=== PATIENT | female | born 2000 | race Caucasian/White ===

== ENCOUNTER 2021-05-17 17:39 | Inpatient (IN) | payer BC, SELFPAY ==
[2021-05-17 17:52] VITALS: BP 128/70; PULSE 82; O2SAT 98
[2021-05-17 18:16] VITALS: BP 118/69; PULSE 89; RESP 18; TEMP 36.9; O2SAT 98; BMI 24.5
--- NOTE | 2021-05-17 18:17 | ED.GENADULT ---
HPI - General Adult General Chief complaint: Psychiatric Symptoms Stated complaint: SI Time Seen by Provider: 05/17/21 18:16 Source: patient and EMS Mode of arrival: EMS Limitations: no limitations History of Present Illness HPI narrative: Patient is a 21 year old female presenting to the emergency department today with suicidal ideation, under a section 12. Patient's section 12 paperwork comes from the clinician at [facility] that states the patient has plan to overdose on her medication. Patient denies any dizziness, lightheadedness, abdominal pain, nausea, vomiting, fever, chills, blurry vision, double vision, loss of vision, chest pain, difficulty breathing, shortness of breath, back pain, night sweats, pain with urination, increased urinary frequency, increased urinary urgency, blood in her urine or stool, syncope or a near syncopal episode, recent trauma or falls, bowel incontinence, bladder incontinence, bowel retention, bladder retention, or any other complaints at this time. Patient states that her depression has been getting worse over the last 2 weeks. Patient denies any homicidal ideation. Onset (ago): day(s) Severity: mild Relieving factors: none Exacerbating factors: other (stress) Associated symptoms: denies other symptoms Treatments prior to arrival: none Related Data Home Medications Medication Instructions Recorded Confirmed bupropion HCl 300 mg 24 hr tablet, 1 tab PO DAILY 05/17/21 05/17/21 extended release hydroxyzine HCl 50 mg tablet 75 mg PO BEDTIME PRN 05/17/21 05/17/21 melatonin 3 mg tablet 1 - 2 tab PO NEEDED PRN 05/17/21 05/17/21 Allergies Allergy/AdvReac Type Severity Reaction Status Date / Time No Known Allergies Allergy Verified 05/17/21 18:17 Review of Systems Constitutional: Constitutional: Reports no additional constitutional complaints, Denies chills, Denies fever(s) and Denies night sweats Eyes: Eyes: Reports no additional eye complaints, Denies blurry vision, Denies change in vision, Denies diplopia, Denies eye discharge, Denies loss of vision and Denies eye pain ENT: Denies dizziness Cardiovascular: Cardiovascular: Reports no additional cardiovascular complaints, Denies chest pain, Denies lightheadedness, Denies Loss of Consciousness and Denies dyspnea Respiratory: Respiratory: Reports no additional respiratory complaints and Denies dyspnea Gastrointestinal: Gastrointestinal: Reports no additional gastrointestinal complaints, Denies abdominal pain, Denies melena, Denies hematochezia, Denies change in bowel habits and Denies change in stool character Genitourinary: Genitourinary: Denies hematuria, Denies urinary frequency, Denies dysuria, Denies urinary incontinence, Denies urinary hesitancy and Denies urinary urgency Musculoskeletal: Musculoskeletal: Reports no additional musculoskeletal complaints, Denies numbness and Denies tingling Neurologic: Denies dizziness, Denies loss of vision, Denies numbness and Denies tingling Psychiatric: Psychiatric: Reports no additional psychiatric complaints, Denies homicidal ideation and Reports suicidal ideation Endocrine: Endocrine: Reports no additional endocrine complaints Hematologic/Lymphatic: Hematologic/Lymphatic: Reports no additional hematologic/lymphatic complaints Allergic/Immunologic: Allergic/Immunologic: Reports no additional allergic/immunologic complaints [facility] Past Medical History Attestation statement: The following information was validated with the patient. Source: old records reviewed Social History Social History Advance Directives: No Advance Directives Information Provided: No Patient : No Physical Exam ED Vital Signs: Vital Signs - 24 hr 05/17/21 18:16 Temperature 98.5 F Pulse Rate 89 Respiratory Rate 18 Blood Pressure 118/69 Pulse Oximetry 98 BMI result Body Mass Index 24.5 Const General: cooperative, no acute distress, alert and awake Nutritional Appearance: well nourished Orientation/consciousness: patient oriented x3 Limitations: no limitations [facility] Head: Yes normal to inspection and Yes atraumatic Ears: hearing grossly normal bilaterally and external ears normal General nose exam: Normal external nose present, no nasal discharge noted and no epistaxis Face and sinus: Yes normal facial exam, No abrasion and No laceration Mouth: Normal oral and palatal mucosa present, no drooling and no muffled voice Eyes General: appearance normal, both eyes and all related structures Periorbital: periorbital findings normal Eyelids: Yes eyelids normal Conjunctivae: conjunctivae normal Pupils: Equal, round and reactive pupils present EOM: EOMs intact bilaterally Neck Neck: Yes normal visual inspection, Yes full ROM and Yes no lymphadenopathy Chest Chest palpation & inspection: normal inspection of the chest Resp Effort & Inspection: normal respiratory effort and able to speak in complete sentences Auscultation: clear to auscultation bilaterally Cardio Rate: regular rate Rhythm: regular rhythm GI Inspection: Yes normal to inspection Neuro General: patient oriented x3 and moves all extremities Cranial nerves: Yes Equal, round and reactive pupils present Cognition (Neuro): normal cognition Motor exam (neuro): 5/5 motor strength present throughout Sensory Exam: Normal double simultaneous stimulation for sensation Coordination: [id number] test normal Extrem General: Yes normal to inspection, Yes full ROM and Yes capillary refill normal Psych Appearance: grossly normal Mental Status: mental status grossly normal Affect: normal affect Attitude: cooperative Thought process: Normal thought process present Thought content: Suicidality present and Depressive thoughts present Insight: Good insight present (Psych) Course Reevaluation(s) Reevaluation #1: Spoke to CARE team who states that they reissued the section 12 because of some issues with the first form being filled out incorrectly. They stated that there would be an opening in our psychiatric unit here and she will be going there. Time: 20:40 Medical Decision Making MDM Narrative Medical decision making narrative: Patient is a 21 year old female presenting to the emergency department today with suicidal ideation and depression. Patient's physical exam showed a depressed, suicidal, but cooperative patient. Patient's blood work was unremarkable. Patient's urine showed no acute process. I explained my physical exam findings as well as all test results to the patient. I answered all questions asked by the patient. Patient was evaluated by the CARE team who reissued a section 12 due to some issues with the originally issued form. They stated that there is an opening in our psychiatric unit here and she will be going there at some point in the near future. Patient verbalized agreement and understanding with this treatment plan and admission. Differential Diagnosis Differential Diagnosis: suicidal ideation, depression Medical Records Medical records reviewed: Yes I reviewed the patient's medical records. Lab Data Lab results reviewed: Yes I reviewed the patient's lab results. Result diagrams: 05/17/21 18:55 05/17/21 18:55 Labs: Lab Results 05/17/21 05/17/21 05/17/21 Range/Units 18:26 18:26 18:29 WBC (4.8-10.8) X10*3/uL RBC (4.20-5.50) X10*6/uL Hgb (12.0-16.0) g/dl Hct (37.0-47.0) % MCV (80.0-98.0) fL MCH (27.0-33.0) pg MCHC (31.0-35.0) g/dl RDW (11.0-16.0) % Plt Count (160-400) X10*3/uL MPV (9.4-12.3) fL Immature Gran % (Auto) (0.0-0.4) % Neut % (Auto) (45-73) % Lymph % (Auto) (20-40) % Swift % (Auto) (2-11) % Eos % (Auto) (0-4) % Baso % (Auto) (0-2) % Lymph # (Auto) (1.2-4.9) X10*3/uL Swift # (Auto) (0.1-1.2) X10*3/uL Eos # (Auto) (0.0-0.4) X10*3/uL Baso # (Auto) (0.0-0.2) X10*3/uL Abs Immat Gran (auto) (0.00-0.03) X10*3/uL Absolute Neuts (auto) (2.0-8.3) x10*3/uL Absolute Nucleated RBC (0.0-0.012) X10*3/uL Nucleated RBC % (auto) (0.0-0.2) /100WBC Sodium (135-145) mmol/L Potassium (3.3-5.1) mmol/L Chloride (96-108) mmol/L Carbon Dioxide (22-29) mmol/L Anion Gap (12-20) BUN (9-16) mg/dL Creatinine (0.5-1.4) mg/dL Estim Creat Clear Calc Estimated GFR Random Glucose (60-115) mg/dL Calcium (8.4-10.2) mg/dL Total Bilirubin (0.0-1.0) mg/dL AST (5-31) U/L ALT (0-31) U/L Alkaline Phosphatase (39-117) U/L Total Protein (6.5-8.0) g/dL Albumin (3.5-5.0) g/dL Urine Color Urine Appearance Urine pH (5.0-8.0) Ur Specific [place] (1.005-1.025) Urine Protein (NEG-TRACE) MG/DL Urine Glucose (UA) (NEG) MG/DL Urine Ketones (NEG) MG/DL Urine Blood (NEG) Urine Nitrite (NEG) Ur Leukocyte Esterase (NEG) Urine RBC (0) /HPF Urine WBC (0-4) /HPF Ur Squamous Epith Cells /LPF Urine Bacteria /LPF Urine Test NEGATIVE (NEGATIVE) Urine Opiates Screen Not Detected (Not Detect) Urine Fentanyl Screen Not Detected (Not Detect) Ur Barbiturates Screen Not Detected (Not Detect) Ur Phencyclidine Scrn Not Detected (Not Detect) Ur Amphetamines Screen Not Detected (Not Detect) U Benzodiazepines Scrn Not Detected (Not Detect) Urine Cocaine Screen Not Detected (Not Detect) U Marijuana (THC) Screen Not Detected (Not Detect) Ethyl Alcohol mg/dL COVID-19 ([place]) Negative (Negative) COVID-19 Clin Com See Note 05/17/21 05/17/21 05/17/21 Range/Units 18:29 18:55 18:55 WBC 7.2 (4.8-10.8) X10*3/uL RBC 4.20 (4.20-5.50) X10*6/uL Hgb 12.6 (12.0-16.0) g/dl Hct 37.0 (37.0-47.0) % MCV 88.1 (80.0-98.0) fL MCH 30.0 (27.0-33.0) pg MCHC 34.1 (31.0-35.0) g/dl RDW 11.9 (11.0-16.0) % Plt Count 246 (160-400) X10*3/uL MPV 10.1 (9.4-12.3) fL Immature Gran % (Auto) 0.3 (0.0-0.4) % Neut % (Auto) 61.1 (45-73) % Lymph % (Auto) 29.2 (20-40) % Swift % (Auto) 5.9 (2-11) % Eos % (Auto) 2.9 (0-4) % Baso % (Auto) 0.6 (0-2) % Lymph # (Auto) 2.1 (1.2-4.9) X10*3/uL Swift # (Auto) 0.4 (0.1-1.2) X10*3/uL Eos # (Auto) 0.2 (0.0-0.4) X10*3/uL Baso # (Auto) 0.0 (0.0-0.2) X10*3/uL Abs Immat Gran (auto) 0.02 (0.00-0.03) X10*3/uL Absolute Neuts (auto) 4.4 (2.0-8.3) x10*3/uL Absolute Nucleated RBC 0.000 (0.0-0.012) X10*3/uL Nucleated RBC % (auto) 0.0 (0.0-0.2) /100WBC Sodium 141 (135-145) mmol/L Potassium 3.9 (3.3-5.1) mmol/L Chloride 109 H (96-108) mmol/L Carbon Dioxide 22 (22-29) mmol/L Anion Gap 14 (12-20) BUN 15 (9-16) mg/dL Creatinine 0.70 (0.5-1.4) mg/dL Estim Creat Clear Calc 104.9 Estimated GFR > 60 Random Glucose 86 (60-115) mg/dL Calcium 9.6 (8.4-10.2) mg/dL Total Bilirubin 0.4 (0.0-1.0) mg/dL AST 17 (5-31) U/L ALT 10 (0-31) U/L Alkaline Phosphatase 70 (39-117) U/L Total Protein 7.5 (6.5-8.0) g/dL Albumin 4.5 (3.5-5.0) g/dL Urine Color YELLOW Urine Appearance CLEAR Urine pH 6.0 (5.0-8.0) Ur Specific [place] >= 1.030 H (1.005-1.025) Urine Protein NEG (NEG-TRACE) MG/DL Urine Glucose (UA) NEG (NEG) MG/DL Urine Ketones NEG (NEG) MG/DL Urine Blood 3+ H (NEG) Urine Nitrite NEG (NEG) Ur Leukocyte Esterase NEG (NEG) Urine RBC 10-14 H (0) /HPF Urine WBC 0 (0-4) /HPF Ur Squamous Epith Cells 1+ /LPF Urine Bacteria NONE /LPF Urine Test (NEGATIVE) Urine Opiates Screen (Not Detect) Urine Fentanyl Screen (Not Detect) Ur Barbiturates Screen (Not Detect) Ur Phencyclidine Scrn (Not Detect) Ur Amphetamines Screen (Not Detect) U Benzodiazepines Scrn (Not Detect) Urine Cocaine Screen (Not Detect) U Marijuana (THC) Screen (Not Detect) Ethyl Alcohol mg/dL COVID-19 ([place]) (Negative) COVID-19 Clin Com 05/17/21 Range/Units 18:55 WBC (4.8-10.8) X10*3/uL RBC (4.20-5.50) X10*6/uL Hgb (12.0-16.0) g/dl Hct (37.0-47.0) % MCV (80.0-98.0) fL MCH (27.0-33.0) pg MCHC (31.0-35.0) g/dl RDW (11.0-16.0) % Plt Count (160-400) X10*3/uL MPV (9.4-12.3) fL Immature Gran % (Auto) (0.0-0.4) % Neut % (Auto) (45-73) % Lymph % (Auto) (20-40) % Swift % (Auto) (2-11) % Eos % (Auto) (0-4) % Baso % (Auto) (0-2) % Lymph # (Auto) (1.2-4.9) X10*3/uL Swift # (Auto) (0.1-1.2) X10*3/uL Eos # (Auto) (0.0-0.4) X10*3/uL Baso # (Auto) (0.0-0.2) X10*3/uL Abs Immat Gran (auto) (0.00-0.03) X10*3/uL Absolute Neuts (auto) (2.0-8.3) x10*3/uL Absolute Nucleated RBC (0.0-0.012) X10*3/uL Nucleated RBC % (auto) (0.0-0.2) /100WBC Sodium (135-145) mmol/L Potassium (3.3-5.1) mmol/L Chloride (96-108) mmol/L Carbon Dioxide (22-29) mmol/L Anion Gap (12-20) BUN (9-16) mg/dL Creatinine (0.5-1.4) mg/dL Estim Creat Clear Calc Estimated GFR Random Glucose (60-115) mg/dL Calcium (8.4-10.2) mg/dL Total Bilirubin (0.0-1.0) mg/dL AST (5-31) U/L ALT (0-31) U/L Alkaline Phosphatase (39-117) U/L Total Protein (6.5-8.0) g/dL Albumin (3.5-5.0) g/dL Urine Color Urine Appearance Urine pH (5.0-8.0) Ur Specific [place] (1.005-1.025) Urine Protein (NEG-TRACE) MG/DL Urine Glucose (UA) (NEG) MG/DL Urine Ketones (NEG) MG/DL Urine Blood (NEG) Urine Nitrite (NEG) Ur Leukocyte Esterase (NEG) Urine RBC (0) /HPF Urine WBC (0-4) /HPF Ur Squamous Epith Cells /LPF Urine Bacteria /LPF Urine Test (NEGATIVE) Urine Opiates Screen (Not Detect) Urine Fentanyl Screen (Not Detect) Ur Barbiturates Screen (Not Detect) Ur Phencyclidine Scrn (Not Detect) Ur Amphetamines Screen (Not Detect) U Benzodiazepines Scrn (Not Detect) Urine Cocaine Screen (Not Detect) U Marijuana (THC) Screen (Not Detect) Ethyl Alcohol < 10 mg/dL COVID-19 ([place]) (Negative) COVID-19 Clin Com Discharge Plan Discharge Clinical Impression: Depression, Suicidal ideation Patient Disposition: Admitted As Inpatient Prescriptions: No Action bupropion HCl 300 mg tablet extended release 24 hr 1 tab PO DAILY 0RF hydroxyzine HCl 50 mg tablet 75 mg PO BEDTIME PRN (Reason: Insomnia) 0RF melatonin 3 mg tablet 1 - 2 tab PO NEEDED PRN (Reason: Insomnia) 0RF Print Language: Yoruba
[2021-05-17 18:43] LABS: Appearance Urine CLEAR; Color Urine YELLOW; Glucose Urine UA NEG (NEG); Leukocyte Esterase Urine NEG (NEG); Nitrite Urine NEG (NEG); Specific Gravity - Urine >= 1.030 (1.005-1.025); Urine Blood 3+ (NEG); Urine Ketones NEG (NEG); Urine Protein NEG (NEG-TRACE)
[2021-05-17 18:44] LABS: UPreg QC Valid YES; Urine Pregnancy NEGATIVE (NEGATIVE)
[2021-05-17 18:51] LABS: Squamous Epithelial Cell Urine 1+ /LPF; WBC Urine 0 /HPF (0-4)
[2021-05-17 18:57] LABS: Amphetamine Screen Urine Not Detected (Not Detect); Barbiturates, Urine Not Detected (Not Detect); Benzodiazepines Screen Urine Not Detected (Not Detect); COVID-19 Test Negative (Negative); Cannabinoid Screen Urine Not Detected (Not Detect); Cocaine Screen Urine Not Detected (Not Detect); Fentanyl, urine Not Detected (Not Detect); IDNOW Serial# 16C4AD1C; Opiate Screen Urine Not Detected (Not Detect); Phencyclidine Screen Urine Not Detected (Not Detect)
[2021-05-17 19:02] LABS: MANUAL DIFF FLAG NO
[2021-05-17 19:04] LABS: Basophils Percent Auto 0.6 % (0-2); Eosinophils Absolute Auto 0.2 X10*3/uL (0.0-0.4); Eosinophils Percent Auto 2.9 % (0-4); Hemoglobin 12.6 g/dl (12.0-16.0); Imm Gran Abs Auto 0.02 X10*3/uL (0.00-0.03); Imm Gran Pct Auto 0.3 % (0.0-0.4); Lymphocytes Absolute Auto 2.1 X10*3/uL (1.2-4.9); Lymphocytes Percent Auto 29.2 % (20-40); Mean Corpuscular HGB Conc 34.1 g/dl (31.0-35.0); Mean Corpuscular Volume 88.1 fL (80.0-98.0); Mean Platelet Volume 10.1 fL (9.4-12.3); Monocytes Absolute Auto 0.4 X10*3/uL (0.1-1.2); Monocytes Percent Auto 5.9 % (2-11); Neutrophils Absolute Auto 4.4 x10*3/uL (2.0-8.3); Neutrophils Percent Auto 61.1 % (45-73); Platelet Count 246 X10*3/uL (160-400); Red Cell Distribution Width 11.9 % (11.0-16.0); White Blood Count 7.2 X10*3/uL (4.8-10.8)
[2021-05-17 19:19] LABS: Ethanol < 10 mg/dL
[2021-05-17 19:21] LABS: Alanine Aminotransferase 10 U/L (0-31); Albumin Level 4.5 g/dL (3.5-5.0); Alkaline Phosphatase 70 U/L (39-117); Anion Gap 14 (12-20); Aspartate Amino Transferase 17 U/L (5-31); Bilirubin Total 0.4 mg/dL (0.0-1.0); Blood Urea Nitrogen 15 mg/dL (9-16); Calcium 9.6 mg/dL (8.4-10.2); Carbon Dioxide 22 mmol/L (22-29); Chloride 109 mmol/L (96-108); Creatinine Clr Calc Pharmacy 104.9; Estimated Glomerular Filt Rate > 60; Glucose Random 86 mg/dL (60-115); Potassium 3.9 mmol/L (3.3-5.1); Sodium 141 mmol/L (135-145); Total Protein 7.5 g/dL (6.5-8.0)
[2021-05-17] MEDS: diphenhydrAMINE HCL 25 MG TABLET 50 MG PO (22:54)
[2021-05-17] MEDS: LORazepam 1 MG TABLET 2 MG PO (22:54)
--- NOTE | 2021-05-18 | ECG_ITS ---
Test Reason : MED CLEARANCE Blood Pressure : / mmHG Vent. Rate : 070 BPM Atrial Rate : 070 BPM P-R Int : 136 ms QRS Dur : 086 ms QT Int : 384 ms P-R-T Axes : 034 031 042 degrees QTc Int : 414 ms Sinus rhythm with marked sinus arrhythmia Otherwise normal ECG No previous ECGs available Referred By: Lluvia Flores Electronically Signed By:MICAH RUIZ MD
--- NOTE | 2021-05-18 00:52 | MHC.CARE ---
Pt was evaluated by the CARE team, she is an inpatient bedsearch at this time.
--- NOTE | 2021-05-18 06:33 | PC.NURSE ---
Patient slept though the night, no distress observed/reported, behavior calm, medication compliant, administered Ativan 2 mg po and Benadryl 50 mg po for anxiety and for sleep at 2254 with positive effect, disposition per care team is voluntary Inpatient Bed search, will continue to monitor.
--- NOTE | 2021-05-18 07:09 | PC.NURSE ---
patient appears to remain asleep at present respirations are even and unlaborfed patient appears in no distress
[2021-05-18 16:37] VITALS: BMI 27.1
--- NOTE | 2021-05-18 17:23 | PC.ADMIT ---
Patient presented [place] [facility] [place] [facility] [place] a conditional voluntary on 05/18/2021 at 14:53. 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 Patient is alert and oriented x 4. Pleasant and cooperative with the admission process and questions. Patient presented after having increased depression and suicidal thoughts of ?bleeding out and taking pills? the last two weeks. Patient reported to be isolated in her dorm room, and has had a lack of motivation .Reported that she has not seen her psychiatrist or therapist since the end of February, and as a result has not been on medications since then as well. Sleep has been poor and restless . Patient reported not feeling refreshed after sleeping. Patient is unsure about weight loss, but reports decreased appetite. Stated Everything tastes gross . Patient Denies SI/HI/AH/VH. Patient reports drinking alcohol 3 times a week of 10-12 drink sof tequila or vodka. Patient reported last drink was Saturday (05/12/2021). No signs/symptoms of withdrawal, Nurse practitioner (Masha Cowan) notified of alcohol history. Patient reported goals of discharge were to ?not feel like this anymore?. Patient rated anxiety and depression as 8.5/10. Patient denies physical complaints at this time. 15 minute safety checks initiated.
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
[2021-05-18] MEDS: Melatonin 3 MG TABLET 6 MG PO (21:44)
[2021-05-18] MEDS: hydrOXYzine HCL 25 MG TABLET 75 MG PO (21:44)
[2021-05-19 10:06] VITALS: BP 115/58; PULSE 65; RESP 15; TEMP 36.7; O2SAT 99
[2021-05-19] MEDS: buPROPion HCl XL 300 MG TAB.ER.24H PO (10:07)
--- NOTE | 2021-05-19 15:53 | P.PNPSI_ITS ---
Subjective Subjective Date of Service: 05/19/21 Reason For Visit: SI Interim History: pt reports her mood is just tired. she reports most recent SI was earlier this week. EKG result is reviewed with her and she denies any recent cardiac Sx. she reports a h/o intermittent CP accompanied by a suffocating feeling and a large, sharp pressure on her chest. it lasts 30 minutes to 1 hour. it has not occurred recently. she is content to restart her previous regimen, including wellbutrin 300 mg daily. no other complaints or requests. per staff, isolative, pleasant, had hydroxyzine for insomnia last NOC with good effect. Mental Status Exam Mental Status Exam Narrative: A&O. Well groomed, in hospital attire, normal body habitus. fair eye contact, attentive. No Tics or Tremors. No abnormal involuntary movements. Calm, somewhat guarded but able to engage in conversation. Non-pressured speech, non- spontaneous with regular rate and rhythm, quiet vocal volume and normal prosody. No prolonged speech latency or dysarthria. Mood is ?just tired,? affect is congruent, dysphoric. denies SI/SIBI since earlier this week. denies HI/AVH or delusional thought content. Thoughts are coherent, organized. No known cognitive or memory impairment. Insight/ Judgment fair and adequate. Diagnostics Vital Signs (24Hr): Vital Signs - 24 hr 05/19/21 10:06 Temperature 98.0 F Pulse Rate 65 Respiratory Rate 15 Blood Pressure 115/58 L Pulse Oximetry 99 BMI result Body Mass Index 27.1 Labs Results: 05/17/21 18:55 05/17/21 18:55 Labs: Laboratory Results - last 48 hr 05/17/21 05/17/21 05/17/21 18:26 18:26 18:29 WBC RBC Hgb Hct MCV MCH MCHC RDW Plt Count MPV Immature Gran % (Auto) Neut % (Auto) Lymph % (Auto) [place] % (Auto) Eos % (Auto) Baso % (Auto) Lymph # (Auto) [place] # (Auto) Eos # (Auto) Baso # (Auto) Abs Immat Gran (auto) Absolute Neuts (auto) Absolute Nucleated RBC Nucleated RBC % (auto) Sodium Potassium Chloride Carbon Dioxide Anion Gap BUN Creatinine Estim Creat Clear Calc Estimated GFR Random Glucose Calcium Total Bilirubin AST ALT Alkaline Phosphatase Total Protein Albumin Urine Color Urine Appearance Urine pH Ur Specific [place] Urine Protein Urine Glucose (UA) Urine Ketones Urine Blood Urine Nitrite Ur Leukocyte Esterase Urine RBC Urine WBC Ur Squamous Epith Cells Urine Bacteria Urine Test NEGATIVE Urine Opiates Screen Not Detected Urine Fentanyl Screen Not Detected Ur Barbiturates Screen Not Detected Ur Phencyclidine Scrn Not Detected Ur Amphetamines Screen Not Detected U Benzodiazepines Scrn Not Detected Urine Cocaine Screen Not Detected U Marijuana (THC) Screen Not Detected Ethyl Alcohol COVID-19 ([place]) Negative COVID-19 Clin Com See Note 05/17/21 05/17/21 05/17/21 18:29 18:55 18:55 WBC 7.2 RBC 4.20 Hgb 12.6 Hct 37.0 MCV 88.1 MCH 30.0 MCHC 34.1 RDW 11.9 Plt Count 246 MPV 10.1 Immature Gran % (Auto) 0.3 Neut % (Auto) 61.1 Lymph % (Auto) 29.2 [place] % (Auto) 5.9 Eos % (Auto) 2.9 Baso % (Auto) 0.6 Lymph # (Auto) 2.1 [place] # (Auto) 0.4 Eos # (Auto) 0.2 Baso # (Auto) 0.0 Abs Immat Gran (auto) 0.02 Absolute Neuts (auto) 4.4 Absolute Nucleated RBC 0.000 Nucleated RBC % (auto) 0.0 Sodium 141 Potassium 3.9 Chloride 109 H Carbon Dioxide 22 Anion Gap 14 BUN 15 Creatinine 0.70 Estim Creat Clear Calc 104.9 Estimated GFR > 60 Random Glucose 86 Calcium 9.6 Total Bilirubin 0.4 AST 17 ALT 10 Alkaline Phosphatase 70 Total Protein 7.5 Albumin 4.5 Urine Color YELLOW Urine Appearance CLEAR Urine pH 6.0 Ur Specific [place] >= 1.030 H Urine Protein NEG Urine Glucose (UA) NEG Urine Ketones NEG Urine Blood 3+ H Urine Nitrite NEG Ur Leukocyte Esterase NEG Urine RBC 10-14 H Urine WBC 0 Ur Squamous Epith Cells 1+ Urine Bacteria NONE Urine Test Urine Opiates Screen Urine Fentanyl Screen Ur Barbiturates Screen Ur Phencyclidine Scrn Ur Amphetamines Screen U Benzodiazepines Scrn Urine Cocaine Screen U Marijuana (THC) Screen Ethyl Alcohol COVID-19 ([place]) COVID-19 Clin Com 05/17/21 18:55 WBC RBC Hgb Hct MCV MCH MCHC RDW Plt Count MPV Immature Gran % (Auto) Neut % (Auto) Lymph % (Auto) [place] % (Auto) Eos % (Auto) Baso % (Auto) Lymph # (Auto) [place] # (Auto) Eos # (Auto) Baso # (Auto) Abs Immat Gran (auto) Absolute Neuts (auto) Absolute Nucleated RBC Nucleated RBC % (auto) Sodium Potassium Chloride Carbon Dioxide Anion Gap BUN Creatinine Estim Creat Clear Calc Estimated GFR Random Glucose Calcium Total Bilirubin AST ALT Alkaline Phosphatase Total Protein Albumin Urine Color Urine Appearance Urine pH Ur Specific [place] Urine Protein Urine Glucose (UA) Urine Ketones Urine Blood Urine Nitrite Ur Leukocyte Esterase Urine RBC Urine WBC Ur Squamous Epith Cells Urine Bacteria Urine Test Urine Opiates Screen Urine Fentanyl Screen Ur Barbiturates Screen Ur Phencyclidine Scrn Ur Amphetamines Screen U Benzodiazepines Scrn Urine Cocaine Screen U Marijuana (THC) Screen Ethyl Alcohol < 10 COVID-19 ([place]) COVID-19 Clin Com Medications Medications Current Medications Acetaminophen (Acetaminophen 325 Mg Tablet) 650 mg PO Q6H PRN PRN Reason: Headache/Pain Mild Scale (1-3) Al Hydroxide/Mg Hydroxide (Magnesium Hydrox/Alum Hydrox 30 Ml Oral.Susp) 30 ml PO Q6H PRN PRN Reason: Heartburn/Nausea Bupropion HCl (Bupropion Hcl Xl 300 Mg Tab.Er.24h) 300 mg PO DAILY ADOLPH Last Admin: 05/19/21 10:07 Dose: 300 mg Documented by: Hydroxyzine HCl (Hydroxyzine Hcl 25 Mg Tablet) 75 mg PO BEDTIME PRN PRN Reason: Insomnia Last Admin: 05/18/21 21:44 Dose: 75 mg Documented by: Magnesium Hydroxide (Milk Of Magnesia 30 Ml Oral.Susp) 30 ml PO DAILY PRN PRN Reason: Constipation Melatonin (Melatonin 3 Mg Tablet) 6 mg PO BEDTIME PRN PRN Reason: Insomnia Last Admin: 05/18/21 21:44 Dose: 6 mg Documented by: Trazodone HCl (Trazodone Hcl 50 Mg Tablet) 50 mg PO BEDTIME PRN PRN Reason: Insomnia Allergies Allergies Allergy/AdvReac Type Severity Reaction Status Date / Time No Known Allergies Allergy Verified 05/17/21 18:17 Assessment & Plan Assessment & Plan (1) Post traumatic stress disorder (PTSD): Status: Acute Code(s): F43.10 - Post-traumatic stress disorder, unspecified (2) MDD (major depressive disorder), recurrent episode, moderate: Status: Acute Code(s): F33.1 - Major depressive disorder, recurrent, moderate (3) Social anxiety disorder: Status: Acute Code(s): F40.10 - Social phobia, unspecified Plan Maria Eugenia is a 21 y.o. female who carries a dx of MDD, recurrent and PTSD. She presented to the ED 05/17/21 on a section 12a from the [facility] due to worsening depression x 2 weeks, SI with thoughts of bleeding out and taking pills.? Pt has not been attending to self care, has been isolating in her dorm room. Has been estranged from bio mom for one year, limited supports, has financial stress. Pt appears to have binge drinking behavior but does not think she has a drinking problem. Plan: Pt reports positive benefit on wellbutrin XL 300 mg QAM last semester, would like to re-start this. May consider SSRI, as she has not trialed this medication and has sx of PTSD, social anxiety, and depression. Q15 min safety checks, CV Monitor response to medications. Monitor for safety in the milieu. Discharge on stabilization. Patient seen. Chart reviewed. Discussed with team. Obtain collateral contact info?as needed 05/19: wellbutrin XL 300 mg restarted today. pt declines to take 150 mg x 3 days first. melatonin and trazodone also Rxed. arrhythmia on EKG noted and Dr. Fontaine contacted for opinion. I spent ___35___ minutes with the patient and/or on the patient floor today, greater than?50% of which was spent counseling/coordinating care. Reason for contiued inpatient stay Substantial Risk for: harm to self and inability to function
[2021-05-19 20:14] VITALS: BP 111/62; PULSE 69; RESP 16; TEMP 36.7; O2SAT 98
[2021-05-20] MEDS: hydrOXYzine HCL 25 MG TABLET 75 MG PO ×2 (00:24→22:50)
[2021-05-20] MEDS: Melatonin 3 MG TABLET 6 MG PO ×2 (00:24→22:50)
[2021-05-20 09:22] VITALS: BP 109/63; PULSE 70; RESP 15; TEMP 36.7; O2SAT 99
[2021-05-20] MEDS: buPROPion HCl XL 300 MG TAB.ER.24H PO (09:23)
[2021-05-20] MEDS: Milk of Magnesia 30 ML ORAL.SUSP PO (09:50)
--- NOTE | 2021-05-20 09:59 | HO.PSYCHPN ---
Subjective Subjective Date of Service: 05/20/21 Reason For Visit: SI Subjective Notes: Conditional Voluntary Interim History: pt reports her mood is Ok. she reports most recent SI was earlier this week, none today; reports feeling better; again, EKG result is reviewed with her and she denies any recent cardiac Sx. she denies chest apin today. she reports a h/o intermittent CP accompanied by a suffocating feeling and a large, sharp pressure on her chest. it lasts 30 minutes to 1 hour. it has not occurred recently. she is content to restart her previous regimen, including wellbutrin 300 mg daily. no other complaints or requests. per staff, isolative, pleasant, had hydroxyzine for insomnia last NOC with good effect. 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 dizziness, headache GI: No c/o Nausea, Vomiting, diarrhea, constipation or heartburn -Denies hx of seizures -Denies hx of TBI/ concussion -Denies hx of cardiac issues Constitutional: Reports no additional constitutional complaints, Denies chills, Denies fever(s) and Denies night sweats Eyes: Reports no additional eye complaints, Denies blurry vision, Denies change in vision, Denies diplopia, Denies eye discharge, Denies loss of vision and Denies eye pain Denies dizziness Cardiovascular: Reports no additional cardiovascular complaints, Denies chest pain, Denies lightheadedness, Denies Loss of Consciousness and Denies dyspnea Respiratory: Reports no additional respiratory complaints and Denies dyspnea Gastrointestinal: Reports no additional gastrointestinal complaints, Denies abdominal pain, Denies melena, Denies hematochezia, Denies change in bowel habits and Denies change in stool character Musculoskeletal: Reports no additional musculoskeletal complaints, Denies numbness and Denies tingling Denies dizziness, Denies loss of vision, Denies numbness and Denies tingling Psychiatric: Reports no additional psychiatric complaints, Denies homicidal ideation and Reports suicidal ideation Endocrine: Reports no additional endocrine complaints Hematologic/Lymphatic: Reports no additional hematologic/lymphatic complaints Allergic/Immunologic: Reports no additional allergic/immunologic complaints Mental Status Exam Mental Status Exam Patient Appearance: Well Grooomed and Appropriate Patient Orientation: Person, Place, Time and Situation Level of Consciousness: Awake Patient Behavior: Appropriate and Cooperative Mood Description: Calm and Sad Affect Description: Calm and Constricted Patient Cognition Impaired: No Ability to Follow Directions: Good Speech Pattern: Clear, Appropriate and Coherent Memory Description: Intact Hallucinations: None Delusions: Not Present Thought Process: Intact and Goal Oriented Thought Content: positive for Intact Judgement: Good Diagnostics Vital Signs (24Hr): Vital Signs - 24 hr 05/19/21 10:06 05/19/21 20:14 05/20/21 09:22 Temperature 98.0 F 98.1 F 98.1 F Pulse Rate 65 69 70 Respiratory Rate 15 16 15 Blood Pressure 115/58 L 111/62 109/63 Pulse Oximetry 99 98 99 BMI result Body Mass Index 27.1 Labs Results: 05/17/21 18:55 05/17/21 18:55 EKG EKG: reviewed Medications Medications Current Medications Acetaminophen (Acetaminophen 325 Mg Tablet) 650 mg PO Q6H PRN PRN Reason: Headache/Pain Mild Scale (1-3) Al Hydroxide/Mg Hydroxide (Magnesium Hydrox/Alum Hydrox 30 Ml Oral.Susp) 30 ml PO Q6H PRN PRN Reason: Heartburn/Nausea Bupropion HCl (Bupropion Hcl Xl 300 Mg Tab.Er.24h) 300 mg PO DAILY ADOLPH Last Admin: 05/20/21 09:23 Dose: 300 mg Documented by: Hydroxyzine HCl (Hydroxyzine Hcl 25 Mg Tablet) 75 mg PO BEDTIME PRN PRN Reason: Insomnia Last Admin: 05/20/21 00:24 Dose: 75 mg Documented by: Magnesium Hydroxide (Milk Of Magnesia 30 Ml Oral.Susp) 30 ml PO DAILY PRN PRN Reason: Constipation Last Admin: 05/20/21 09:50 Dose: 30 ml Documented by: Melatonin (Melatonin 3 Mg Tablet) 6 mg PO BEDTIME PRN PRN Reason: Insomnia Last Admin: 05/20/21 00:24 Dose: 6 mg Documented by: Trazodone HCl (Trazodone Hcl 50 Mg Tablet) 50 mg PO BEDTIME PRN PRN Reason: Insomnia Allergies Allergies Allergy/AdvReac Type Severity Reaction Status Date / Time No Known Allergies Allergy Verified 05/17/21 18:17 Assessment & Plan Assessment & Plan (1) Post traumatic stress disorder (PTSD): Status: Acute Code(s): F43.10 - Post-traumatic stress disorder, unspecified (2) MDD (major depressive disorder), recurrent episode, moderate: Status: Acute Code(s): F33.1 - Major depressive disorder, recurrent, moderate (3) Social anxiety disorder: Status: Acute Code(s): F40.10 - Social phobia, unspecified Plan Maria Eugenia is a 21 y.o. female who carries a dx of MDD, recurrent and PTSD. She presented to the ED 05/17/21 on a section 12a from the [facility] due to worsening depression x 2 weeks, SI with thoughts of bleeding out and taking pills.? Pt has not been attending to self care, has been isolating in her dorm room. Has been estranged from bio mom for one year, limited supports, has financial stress. Pt appears to have binge drinking behavior but does not think she has a drinking problem. Plan: Pt reports positive benefit on wellbutrin XL 300 mg QAM last semester, would like to re-start this. May consider SSRI, as she has not trialed this medication and has sx of PTSD, social anxiety, and depression. Q15 min safety checks, CV Monitor response to medications. Monitor for safety in the milieu. Discharge on stabilization. Patient seen. Chart reviewed. Discussed with team. Obtain collateral contact info?as needed 05/19: wellbutrin XL 300 mg restarted today. pt declines to take 150 mg x 3 days first. melatonin and trazodone also Rxed. arrhythmia on EKG noted and Dr. Fontaine contacted for opinion. 05/20 repeat ekg on 05/22 since starting wellbutrin I spent ___15___ minutes with the patient and/or on the patient floor today, greater than?50% of which was spent counseling/coordinating care. Patient educated on: diagnosis, medication risk/benefits and therapeutic strategies Informed Consent: understands and further education needed Reason for contiued inpatient stay Substantial Risk for: harm to self and inability to function
[2021-05-20 20:12] VITALS: BP 126/69; PULSE 88; RESP 16; TEMP 36.6; O2SAT 98
--- NOTE | 2021-05-20 21:56 | PC.NURSE ---
Patient reported she had a BM today.
[2021-05-21 09:44] VITALS: BP 121/51; PULSE 71; RESP 15; TEMP 36.4; O2SAT 98
[2021-05-21] MEDS: buPROPion HCl XL 300 MG TAB.ER.24H PO (09:45)
--- NOTE | 2021-05-21 10:54 | P.PNPSI_ITS ---
Subjective Subjective Date of Service: 05/21/21 Reason For Visit: SI Subjective Notes: Conditional Voluntary Interim History: pt reports her mood is Ok. she reports not sleeping well. She denies chest pain . reports feeling better mood;denies SI . Pt denies side effects from wellbutrin. 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, headache GI: No c/o Nausea, Vomiting, diarrhea, constipation or heartburn -Denies hx of seizures -Denies hx of TBI/ concussion -Denies hx of cardiac issues Constitutional: Reports no additional constitutional complaints, Denies chills, Denies fever(s) and Denies night sweats Eyes: Reports no additional eye complaints, Denies blurry vision, Denies change in vision, Denies diplopia, Denies eye discharge, Denies loss of vision and Denies eye pain Denies dizziness Cardiovascular: Reports no additional cardiovascular complaints, Denies chest pain, Denies lightheadedness, Denies Loss of Consciousness and Denies dyspnea Respiratory: Reports no additional respiratory complaints and Denies dyspnea Gastrointestinal: Reports no additional gastrointestinal complaints, Denies abdominal pain, Denies melena, Denies hematochezia, Denies change in bowel habits and Denies change in stool character Musculoskeletal: Reports no additional musculoskeletal complaints, Denies numbness and Denies tingling Denies dizziness, Denies loss of vision, Denies numbness and Denies tingling Psychiatric: Reports no additional psychiatric complaints, Denies homicidal ideation and Reports suicidal ideation Endocrine: Reports no additional endocrine complaints Hematologic/Lymphatic: Reports no additional hematologic/lymphatic complaints Allergic/Immunologic: Reports no additional allergic/immunologic complaints Mental Status Exam Mental Status Exam Narrative: A&O. Well groomed, casually dressed, normal body habitus. fair eye contact, attentive. No Tics or Tremors. No abnormal involuntary movements. Calm, somewhat guarded but able to engage in conversation. soft spoken; Non-pressured speech, non-spontaneous with regular rate and rhythm, quiet vocal volume and normal prosody. No prolonged speech latency or dysarthria. Mood is ?just tired,? affect is congruent, dysphoric. denies SI/SIBI since earlier this week. denies HI /AVH or delusional thought content. Thoughts are coherent, organized. No known cognitive or memory impairment. Insight/ Judgment fair and adequate. Reports poor sleep Patient Appearance: Well Grooomed and Appropriate Patient Orientation: Person, Place, Time and Situation Level of Consciousness: Awake Patient Behavior: Appropriate and Cooperative Mood Description: Calm and Sad Affect Description: Calm and Constricted Patient Cognition Impaired: No Ability to Follow Directions: Good Speech Pattern: Clear, Appropriate and Coherent Memory Description: Intact Judgement: Good Diagnostics Vital Signs (24Hr): Vital Signs - 24 hr 05/20/21 20:12 05/21/21 09:44 Temperature 98 F 97.6 F Pulse Rate 88 71 Respiratory Rate 16 15 Blood Pressure 126/69 121/51 L Pulse Oximetry 98 98 BMI result Body Mass Index 27.1 Labs Results: 05/17/21 18:55 05/17/21 18:55 EKG EKG Comment: abnormal EKG repeat ekg ordered fro 05/22/21 Medications Medications Current Medications Acetaminophen (Acetaminophen 325 Mg Tablet) 650 mg PO Q6H PRN PRN Reason: Headache/Pain Mild Scale (1-3) Al Hydroxide/Mg Hydroxide (Magnesium Hydrox/Alum Hydrox 30 Ml Oral.Susp) 30 ml PO Q6H PRN PRN Reason: Heartburn/Nausea Bupropion HCl (Bupropion Hcl Xl 300 Mg Tab.Er.24h) 300 mg PO DAILY ADOLPH Last Admin: 05/21/21 09:45 Dose: 300 mg Documented by: Hydroxyzine HCl (Hydroxyzine Hcl 25 Mg Tablet) 75 mg PO BEDTIME PRN PRN Reason: Insomnia Last Admin: 05/20/21 22:50 Dose: 75 mg Documented by: Magnesium Hydroxide (Milk Of Magnesia 30 Ml Oral.Susp) 30 ml PO DAILY PRN PRN Reason: Constipation Last Admin: 05/20/21 09:50 Dose: 30 ml Documented by: Melatonin (Melatonin 3 Mg Tablet) 6 mg PO BEDTIME PRN PRN Reason: Insomnia Last Admin: 05/20/21 22:50 Dose: 6 mg Documented by: Trazodone HCl (Trazodone Hcl 50 Mg Tablet) 50 mg PO BEDTIME PRN PRN Reason: Insomnia Allergies Allergies Allergy/AdvReac Type Severity Reaction Status Date / Time No Known Allergies Allergy Verified 05/17/21 18:17 Assessment & Plan Assessment & Plan (1) Post traumatic stress disorder (PTSD): Status: Acute Code(s): F43.10 - Post-traumatic stress disorder, unspecified (2) MDD (major depressive disorder), recurrent episode, moderate: Status: Acute Code(s): F33.1 - Major depressive disorder, recurrent, moderate (3) Social anxiety disorder: Status: Acute Code(s): F40.10 - Social phobia, unspecified Plan Maria Eugenia is a 21 y.o. female who carries a dx of MDD, recurrent and PTSD. She presented to the ED 05/17/21 on a section 12a from the [facility] ing center due to worsening depression x 2 weeks, SI with thoughts of bleeding out and taking pills.? Pt has not been attending to self care, has been isolating in her dorm room. Has been estranged from bio mom for one year, limited supports, has financial stress. Pt appears to have binge drinking behavior but does not think she has a drinking problem. Plan: Pt reports positive benefit on wellbutrin XL 300 mg QAM last semester, would like to re-start this. May consider SSRI, as she has not trialed this medication and has sx of PTSD, social anxiety, and depression. Q15 min safety checks, CV Monitor response to medications. Monitor for safety in the milieu. Discharge on stabilization. Patient seen. Chart reviewed. Discussed with team. Obtain collateral contact info?as needed 05/19: wellbutrin XL 300 mg restarted today. pt declines to take 150 mg x 3 days first. melatonin and trazodone also Rxed. arrhythmia on EKG noted and Dr. Fontaine contacted for opinion. 05/20 repeat ekg on 05/22 since starting wellbutrin 05/21 no changes continue treatment plan, reassess sleep meds I spent ___15___ minutes with the patient and/or on the patient floor today, greater than?50% of which was spent counseling/coordinating care. Reason for contiued inpatient stay Substantial Risk for: harm to self and inability to function
[2021-05-21 21:27] VITALS: BP 124/76; PULSE 85; RESP 16; TEMP 36.4; O2SAT 98
[2021-05-21] MEDS: Melatonin 3 MG TABLET 6 MG PO (21:57)
[2021-05-21] MEDS: hydrOXYzine HCL 25 MG TABLET 75 MG PO (21:57)
--- NOTE | 2021-05-22 08:00 | ECG_ITS ---
Test Reason : ABN EKG Blood Pressure : / mmHG Vent. Rate : 079 BPM Atrial Rate : 079 BPM P-R Int : 140 ms QRS Dur : 098 ms QT Int : 380 ms P-R-T Axes : 040 050 051 degrees QTc Int : 435 ms Normal sinus rhythm Normal ECG When compared with ECG of 18-MAY-2021 11:31, No significant change was found Referred By: Urmila Odell Electronically Signed By:BARRY PETER
[2021-05-22] MEDS: buPROPion HCl XL 300 MG TAB.ER.24H PO (08:44)
[2021-05-22 08:47] VITALS: BP 121/76; PULSE 80; RESP 14; TEMP 36.6; O2SAT 99
--- NOTE | 2021-05-22 14:43 | P.PNPSI_ITS ---
Subjective Subjective Date of Service: 05/22/21 Reason For Visit: SI Interim History: pt up at her desk this morning, appears brighter, better eye contact, mumbling less and more spontaneously verbal. states she is interested in returning to school. has been speaking with her manager rn case daily. discuss the process of returning to school and that there is no guarantee that that will be able to happen. awaiting EKG for arrythmia. pt will try trazodone rather than atarax tonight. planning for discharge. per staff, dep/anx. quiet, withdrawn. attended one group, otherwise isolative. feeling better after talking to friends - feeling more supported than she had been prior. attending to ADLs, showered last NOC. anx/dep low overnight. Mental Status Exam Mental Status Exam Narrative: A&O. Well groomed, in hospital attire, normal body habitus. good eye contact, attentive. No Tics or Tremors. No abnormal involuntary movements. Calm, somewhat guarded but able to engage in conversation. Non-pressured speech, spontaneous with regular rate and rhythm, quiet vocal volume and normal prosody. No prolonged speech latency or dysarthria. Mood is improved, affect is congruent, l ess dysphoric. no SI/HI/AVH expressed. Thoughts are coherent, organized. No known cognitive or memory impairment. Insight/ Judgment fair and adequate. Diagnostics Vital Signs (24Hr): Vital Signs - 24 hr 05/21/21 21:27 05/22/21 08:47 Temperature 97.6 F 97.8 F Pulse Rate 85 80 Respiratory Rate 16 14 Blood Pressure 124/76 121/76 Pulse Oximetry 98 99 BMI result Body Mass Index 27.1 Labs Results: 05/17/21 18:55 05/17/21 18:55 Medications Medications Current Medications Acetaminophen (Acetaminophen 325 Mg Tablet) 650 mg PO Q6H PRN PRN Reason: Headache/Pain Mild Scale (1-3) Al Hydroxide/Mg Hydroxide (Magnesium Hydrox/Alum Hydrox 30 Ml Oral.Susp) 30 ml PO Q6H PRN PRN Reason: Heartburn/Nausea Bupropion HCl (Bupropion Hcl Xl 300 Mg Tab.Er.24h) 300 mg PO DAILY ADOLPH Last Admin: 05/22/21 08:44 Dose: 300 mg Documented by: Hydroxyzine HCl (Hydroxyzine Hcl 25 Mg Tablet) 75 mg PO BEDTIME PRN PRN Reason: Insomnia Last Admin: 05/21/21 21:57 Dose: 75 mg Documented by: Magnesium Hydroxide (Milk Of Magnesia 30 Ml Oral.Susp) 30 ml PO DAILY PRN PRN Reason: Constipation Last Admin: 05/20/21 09:50 Dose: 30 ml Documented by: Melatonin (Melatonin 3 Mg Tablet) 6 mg PO BEDTIME PRN PRN Reason: Insomnia Last Admin: 05/21/21 21:57 Dose: 6 mg Documented by: Trazodone HCl (Trazodone Hcl 50 Mg Tablet) 50 mg PO BEDTIME PRN PRN Reason: Insomnia Allergies Allergies Allergy/AdvReac Type Severity Reaction Status Date / Time No Known Allergies Allergy Verified 05/17/21 18:17 Assessment & Plan Assessment & Plan (1) Post traumatic stress disorder (PTSD): Status: Acute Code(s): F43.10 - Post-traumatic stress disorder, unspecified (2) MDD (major depressive disorder), recurrent episode, moderate: Status: Acute Code(s): F33.1 - Major depressive disorder, recurrent, moderate (3) Social anxiety disorder: Status: Acute Code(s): F40.10 - Social phobia, unspecified Plan Maria Eugenia is a 21 y.o. female who carries a dx of MDD, recurrent and PTSD. She presented to the ED 05/17/21 on a section 12a from the [facility] due to worsening depression x 2 weeks, SI with thoughts of bleeding out and taking pills.? Pt has not been attending to self care, has been isolating in her dorm room. Has been estranged from bio mom for one year, limited supports, has financial stress. Pt appears to have binge drinking behavior but does not think she has a drinking problem. Plan: Pt reports positive benefit on wellbutrin XL 300 mg QAM last semester, would like to re-start this. May consider SSRI, as she has not trialed this medication and has sx of PTSD, social anxiety, and depression. Q15 min safety checks, CV Monitor response to medications. Monitor for safety in the milieu. Discharge on stabilization. Patient seen. Chart reviewed. Discussed with team. Obtain collateral contact info?as needed 05/19: wellbutrin XL 300 mg restarted today. pt declines to take 150 mg x 3 days first. melatonin and trazodone also Rxed. arrhythmia on EKG noted and Dr. Fontaine contacted for opinion. 05/20 repeat ekg on 05/22 since starting wellbutrin 05/21 no changes continue treatment plan, reassess sleep meds I spent ___25___ minutes with the patient and/or on the patient floor today, greater than?50% of which was spent counseling/coordinating care. Reason for contiued inpatient stay Substantial Risk for: inability to function and rapid decompensation
[2021-05-22 22:25] VITALS: BP 118/87; PULSE 95; RESP 16; TEMP 36.6; O2SAT 99
[2021-05-22] MEDS: traZODone HCL 50 MG TABLET PO (22:43)
[2021-05-23 08:00] VITALS: BP 115/60; PULSE 85; RESP 16; TEMP 37.1; O2SAT 85
[2021-05-23] MEDS: buPROPion HCl XL 300 MG TAB.ER.24H PO (08:25)
[2021-05-23] MEDS: Acetaminophen 325 MG TABLET 650 MG PO ×2 (08:25→18:47)
--- NOTE | 2021-05-23 15:00 | P.PNPSI_ITS ---
Subjective Subjective Date of Service: 05/23/21 Reason For Visit: SI Interim History: pt appears brighter today, more spontaneously verbal, smiling some. states she attended groups today. feeling a lot less anxious. planning for discharge tomorrow and to return to [employer] [place]. difficulty sleeping last night and bizarre sensory experiences. attributes insomnia for past several nights to wellbutrin. pt agrees to ativan 2 mg tonight for sleep. no other complaints or requests. per staff, isolative in the morning. slept poorly 2 nights ago as well as last night. anx 4, dep 5. had visitor. repeat EKG WNL. trazodone not very effective for sleep last night. strange somatic rxn in the middle of the night which she was concerned was related to trazodone. Mental Status Exam Mental Status Exam Narrative: A&O. Well groomed, in hospital attire, normal body habitus. good eye contact, attentive. No Tics or Tremors. No abnormal involuntary movements. Calm, not guarded. Non-pressured speech, spontaneous with regular rate and rhythm, quiet vocal volume and normal prosody. No prolonged speech latency or dysarthria. Mood is a lot less anxious, affect is congruent, full range. no SI/HI/AVH expressed. Thoughts are coherent, organized. No known cognitive or memory i mpairment. Insight/ Judgment fair and adequate. Diagnostics Vital Signs (24Hr): Vital Signs - 24 hr 05/22/21 22:25 05/23/21 08:00 Temperature 97.9 F 98.7 F Pulse Rate 95 85 Respiratory Rate 16 16 Blood Pressure 118/87 115/60 Pulse Oximetry 99 85 L BMI result Body Mass Index 27.1 Labs Results: 05/17/21 18:55 05/17/21 18:55 Medications Medications Current Medications Acetaminophen (Acetaminophen 325 Mg Tablet) 650 mg PO Q6H PRN PRN Reason: Headache/Pain Mild Scale (1-3) Last Admin: 05/23/21 08:25 Dose: 650 mg Documented by: Al Hydroxide/Mg Hydroxide (Magnesium Hydrox/Alum Hydrox 30 Ml Oral.Susp) 30 ml PO Q6H PRN PRN Reason: Heartburn/Nausea Bupropion HCl (Bupropion Hcl Xl 300 Mg Tab.Er.24h) 300 mg PO DAILY REPLACED BY [facility] Last Admin: 05/23/21 08:25 Dose: 300 mg Documented by: Hydroxyzine HCl (Hydroxyzine Hcl 25 Mg Tablet) 75 mg PO BEDTIME PRN PRN Reason: Insomnia Last Admin: 05/21/21 21:57 Dose: 75 mg Documented by: Lorazepam (Lorazepam 1 Mg Tablet) 2 mg PO BEDTIME ADOLPH Magnesium Hydroxide (Milk Of Magnesia 30 Ml Oral.Susp) 30 ml PO DAILY PRN PRN Reason: Constipation Last Admin: 05/20/21 09:50 Dose: 30 ml Documented by: Melatonin (Melatonin 3 Mg Tablet) 6 mg PO BEDTIME PRN PRN Reason: Insomnia Last Admin: 05/21/21 21:57 Dose: 6 mg Documented by: Allergies Allergies Allergy/AdvReac Type Severity Reaction Status Date / Time No Known Allergies Allergy Verified 05/17/21 18:17 Assessment & Plan Assessment & Plan (1) Post traumatic stress disorder (PTSD): Status: Acute Code(s): F43.10 - Post-traumatic stress disorder, unspecified (2) MDD (major depressive disorder), recurrent episode, moderate: Status: Acute Code(s): F33.1 - Major depressive disorder, recurrent, moderate (3) Social anxiety disorder: Status: Acute Code(s): F40.10 - Social phobia, unspecified Plan Maria Eugenia is a 21 y.o. female who carries a dx of MDD, recurrent and PTSD. She presented to the ED 05/17/21 on a section 12a from the [facility] due to worsening depression x 2 weeks, SI with thoughts of bleeding out and taking pills.? Pt has not been attending to self care, has been isolating in her dorm room. Has been estranged from bio mom for one year, limited supports, has financial stress. Pt appears to have binge drinking behavior but does not think she has a drinking problem. Plan: Pt reports positive benefit on wellbutrin XL 300 mg QAM last semester, would like to re-start this. May consider SSRI, as she has not trialed this medication and has sx of PTSD, social anxiety, and depression. Q15 min safety checks, CV Monitor response to medications. Monitor for safety in the milieu. Discharge on stabilization. Patient seen. Chart reviewed. Discussed with team. Obtain collateral contact info?as needed 05/19: wellbutrin XL 300 mg restarted today. pt declines to take 150 mg x 3 days first. melatonin and trazodone also Rxed. arrhythmia on EKG noted and Dr. Fontaine contacted for opinion. 05/20 repeat ekg on 05/22 since starting wellbutrin 05/21 no changes continue treatment plan, reassess sleep meds 05/22: after strange sensory experiences after trazodone last night, will DC traz and try ativan 2 mg at HS tonight. discharge tomorrow. paperwork for [employer] [place] completed. I spent ___35___ minutes with the patient and/or on the patient floor today, greater than?50% of which was spent counseling/coordinating care. Reason for contiued inpatient stay Substantial Risk for: inability to function and rapid decompensation
[2021-05-23 21:41] VITALS: BP 114/62; PULSE 89; RESP 16; TEMP 36.6; O2SAT 99
[2021-05-23] MEDS: Melatonin 3 MG TABLET 6 MG PO (22:44)
[2021-05-23] MEDS: LORazepam 1 MG TABLET 2 MG PO (22:45)
[2021-05-23] MEDS: hydrOXYzine HCL 25 MG TABLET 75 MG PO (22:46)
[2021-05-24 06:00] VITALS: BP 109/54; PULSE 75; RESP 16; TEMP 36.6; O2SAT 99
[2021-05-24] MEDS: buPROPion HCl XL 300 MG TAB.ER.24H PO (10:27)
--- NOTE | 2021-05-24 10:51 | PC.NURSE ---
Maria Eugenia is alert, fully oriented, pleasant and cooperative with discharge process. She denies ideation, plan or intent to harm herself or others. She denies auditory and visual hallucinations. She shows no sign or perceptual disturbance. She reports she is anxious only when she is not busy but I learned some things in group that could help. She slept last night and awoke refreshed but a little groggy. She reports that she has had a good appetite. She denies physical complaint. Patient reports she has supports in place at school and is looking forward to going back. She denies physical complaint at present.
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
== END 2021-05-24 13:00 | disposition home or self-care (01) | DRG 751 ==
LOC: HO.ED 05-18 08:42 → HO.PADLT16 05-18 13:53
PROVIDERS: Physician Assistant Medical; Admitting Provider Psychiatry & Neurology Psychiatry; Emergency Provider Emergency Medicine; Visit Provider Psychiatry & Neurology Psychiatry
DX: F33.1 Major depressive disorder, recurrent, moderate (principal); R45.851 Suicidal ideations; F40.10 Social phobia, unspecified; F43.10 Post-traumatic stress disorder, unspecified; Z20.822 Contact with and (suspected) exposure to COVID-19; Z79.899 Other long term (current) drug therapy
CPT/HCPCS: 36415; 80053; 80307; 81001; 81025; 82077; 85025; 87635; 93005; 99285; Q0163